=== PATIENT | female | born 1995 | race Caucasian/White ===

== ENCOUNTER 2017-03-03 16:40 | Inpatient (IN) | payer MEDICAID ==
[~2017-03-03] VITALS: Ht 177.8 cm; Wt 86.1 kg
[2017-03-03 17:46] VITALS: BP 118/67
[2017-03-03] MEDS ORDERED: PRAZ1 PO (17:49)
[2017-03-03] MEDS ORDERED: ARIP10TA8 PO (17:49)
[2017-03-03] MEDS ORDERED: ASEN10TA8 SL (17:49)
[2017-03-03] MEDS ORDERED: CLON.5 PO (17:49)
[2017-03-03] MEDS ORDERED: DIVA500T35 PO (17:49)
[2017-03-03] MEDS ORDERED: OLANZapine 5 MG RAPDIS TABLET PO PRN (18:00)
[2017-03-03] MEDS ORDERED: ZOLPIDEM TARTRATE 10 MG TABLET PO PRN (18:00)
[2017-03-03] MEDS ORDERED: LORazepam 2 MG TABLET PO PRN (18:00)
[2017-03-03] MEDS ORDERED: PNEUMOCOCCAL VACCINE POLYVALENT 0.5 ML VIAL [PPSV23] IM ONE (18:45)
[2017-03-03 18:48] VITALS: BP 130/80
[2017-03-03] MEDS: ASENAPINE 10 MG SUBLINGUAL TABLET SL SCH (19:00)
[2017-03-03] MEDS: DIVALPROEX SODIUM 500 MG DR TABLET PO SCH (19:00)
[2017-03-03] MEDS ORDERED: INFLUENZA VIRUS VACCINE QVS 2017-18 (3YR+)/PF 60 MCG/0.5 ML SYRINGE IM ONE (19:15)
[2017-03-03] MEDS: PRAZOSIN HCL 1 MG CAPSULE PO SCH (21:34)
[2017-03-03] MEDS: ClonazePAM 0.5 MG TABLET PO SCH (21:34)
[2017-03-04 05:37] VITALS: BP 114/82
[2017-03-04 08:36] LABS: BASOPHILS % (AUTO) 0.3 % (0.0-2.0); EOSINOPHILS % (AUTO) 0.4 % (1.0-6.0); HEMATOCRIT 37.1 % (36-46); HEMOGLOBIN 12.4 g/dL (12.0-16.0); LYMPHOCYTES # (AUTO) 2.3 K/uL (1.0-4.8); MEAN CORPUSCULAR HEMOGLOBIN 30.2 pg (26.0-34.0); MEAN CORPUSCULAR HGB CONC 33.3 G/dL (31.0-37.0); MEAN CORPUSCULAR VOLUME 91 fL (80-100); MONOCYTES # (AUTO) 0.4 K/uL (0.1-1.0); MONOCYTES % (AUTO) 5.7 % (2.0-9.0); NEUTROPHILS # (AUTO) 4.7 K/uL (1.8-7.7); NEUTROPHILS % (AUTO) 62.6 % (40.0-70.0); PLATELET COUNT (AUTO) 214 K/uL (150-450); RED BLOOD CELL COUNT(AUTO) 4.09 MIL/uL (4.00-5.20); RED CELL DISTRIBUTION WIDTH 15.3 % (11.5-14.5); WHITE BLOOD COUNT (AUTO) 7.5 K/uL (4.5-11.0)
[2017-03-04 08:55] VITALS: BP 114/82
[2017-03-04 09:05] LABS: ALANINE AMINOTRANSFERASE 16 U/L (12-78); ALBUMIN 3.6 g/dL (3.4-5.0); ANION GAP 6 mmol/L (8-16); ASPARTATE AMINOTRANSFERASE 9 U/L (15-37); BILIRUBIN,TOTAL 0.2 mg/dL (0.1-1.0); CALCIUM, TOTAL 9.1 mg/dL (8.8-10.5); CARBON DIOXIDE 30 mmol/L (22-29); CHLORIDE 104 mmol/L (98-107); CREATININE 0.75 mg/dL (0.60-1.30); GLOMERULAR FILTR. RATE CALC > 60 mL/min (>60); POTASSIUM 4.1 mmol/L (3.5-5.1); SODIUM SERUM 140 mmol/L (136-145); THYROID STIMULATING HORMONE 1.38 uIU/mL (0.36-3.74); TOTAL PROTEIN, SERUM 7.2 g/dL (6.4-8.2); UREA NITROGEN, BLOOD 19 mg/dL (7-18)
[2017-03-04] MEDS: ARIPiprazole 10 MG TABLET PO SCH (09:48)
[2017-03-04] MEDS: ASENAPINE 10 MG SUBLINGUAL TABLET SL SCH ×2 (09:49→16:50)
[2017-03-04] MEDS: DIVALPROEX SODIUM 500 MG DR TABLET PO SCH ×2 (09:49→16:50)
[2017-03-04 16:00] VITALS: BP 113/71
[2017-03-04] MEDS: ClonazePAM 0.5 MG TABLET PO SCH (20:32)
[2017-03-04] MEDS: PRAZOSIN HCL 1 MG CAPSULE PO SCH (20:32)
[2017-03-04] MEDS: ACETAMINOPHEN 325 MG TABLET PO PRN (21:34)
[2017-03-04 21:35] VITALS: BP 125/90
[2017-03-05 02:34] VITALS: BP 120/89
[2017-03-05] MEDS: IBUPROFEN 400 MG TABLET PO PRN ×2 (02:41→21:13)
[2017-03-05] MEDS: LEVOTHYROXINE SODIUM 75 MCG TABLET PO SCH (08:00)
[2017-03-05] MEDS: DIVALPROEX SODIUM 500 MG DR TABLET PO SCH ×2 (09:04→16:31)
[2017-03-05] MEDS: ARIPiprazole 10 MG TABLET PO SCH ×2 (09:04→16:31)
[2017-03-05] MEDS: ASENAPINE 10 MG SUBLINGUAL TABLET SL SCH ×2 (09:04→16:31)
[2017-03-05 09:40] VITALS: BP 135/67
[2017-03-05 16:28] VITALS: BP 129/76
[2017-03-05] MEDS: ClonazePAM 0.5 MG TABLET PO SCH (20:15)
[2017-03-05] MEDS: PRAZOSIN HCL 1 MG CAPSULE PO SCH (20:15)
[2017-03-05 21:13] VITALS: BP 122/80
[2017-03-06 05:55] VITALS: BP 122/86
[2017-03-06] MEDS: LEVOTHYROXINE SODIUM 75 MCG TABLET PO SCH (06:08)
[2017-03-06] MEDS: IBUPROFEN 400 MG TABLET PO PRN (06:17)
[2017-03-06 08:00] VITALS: BP 136/89
[2017-03-06] MEDS: ARIPiprazole 10 MG TABLET PO SCH ×2 (08:02→16:21)
[2017-03-06] MEDS: DIVALPROEX SODIUM 500 MG DR TABLET PO SCH ×2 (08:02→16:21)
[2017-03-06] MEDS: ASENAPINE 10 MG SUBLINGUAL TABLET SL SCH ×2 (08:03→16:21)
[2017-03-06] MEDS: ACETAMINOPHEN 325 MG TABLET PO PRN (08:03)
[2017-03-06 08:14] VITALS: BP 102/77
[2017-03-06] MEDS ORDERED: ACETAMINOPHEN 325 MG TABLET PO ONE (10:30)
[2017-03-06 16:01] VITALS: BP 127/83
[2017-03-06] MEDS: ClonazePAM 0.5 MG TABLET PO SCH (20:39)
[2017-03-06] MEDS: PRAZOSIN HCL 1 MG CAPSULE PO SCH (20:39)
[2017-03-07 03:08] VITALS: BP 126/76
[2017-03-07] MEDS: IBUPROFEN 400 MG TABLET PO PRN (03:08)
[2017-03-07] MEDS: LEVOTHYROXINE SODIUM 75 MCG TABLET PO SCH (06:34)
[2017-03-07] MEDS: DIVALPROEX SODIUM 500 MG DR TABLET PO SCH (07:58)
[2017-03-07] MEDS: ARIPiprazole 10 MG TABLET PO SCH (07:58)
[2017-03-07] MEDS: ASENAPINE 10 MG SUBLINGUAL TABLET SL SCH (07:58)
[2017-03-07 08:08] VITALS: BP 103/52
[2017-03-07 08:44] LABS: APPEARANCE,URINE CLOUDY (CLEAR); GLUCOSE, URINE (UA) NEGATIVE (NEGATIVE); KETONES,URINE NEGATIVE (NEGATIVE); LEUKOCYTE ESTERASE ,URINE NEGATIVE (NEGATIVE); OCCULT BLOOD,URINE LARGE (NEGATIVE); PROTEIN,URINE POS 1+ (NEGATIVE)
[2017-03-07 08:51] LABS: ADD UA MICROSCOPIC YES
[2017-03-07 08:59] LABS: RBC,URINE 51-100 /HPF (0-2); WBC,URINE 0-2 /HPF (0-5)
[2017-03-07 09:00] LABS: AMORPHOUS SEDIMENT,UR Moderate /LPF (None Seen); SQUAMOUS EPITHELIAL CELL,UR Many /LPF (None Seen)
[2017-03-07] MEDS ORDERED: LEVO50TA11 PO (10:10)
[2017-03-07 16:06] VITALS: BP 130/76
== END 2017-03-07 16:00 | disposition home or self-care (01) | DRG 750 ==
LOC: B3A 17:57
PROVIDERS: ADMIT Psychiatry & Neurology Psychiatry; ATTEND Psychiatry & Neurology Child & Adolescent Psychiatry
DX: F25.1 Schizoaffective disorder, depressive type (principal); I10 Essential (primary) hypertension; E03.9 Hypothyroidism, unspecified; N83.209 Unspecified ovarian cyst, unspecified side; Z79.899 Other long term (current) drug therapy; Z28.21 Immunization not carried out because of patient refusal
CPT/HCPCS: 80307; 83036; 84439; 84443; 87086